=== PATIENT | female | born 1995 | race Two or more races ===

== ENCOUNTER 2017-12-15 05:34 | Inpatient (IN) | payer BC ==
[2017-12-15] MEDS ORDERED: Sodium Chloride 0.9% 10 ML Syringe FLUSH PRN (06:04)
[2017-12-15] MEDS ORDERED: ceFAZolin 2 GM in Premix Bag 1 BAG IV ONE (06:04)
[2017-12-15] MEDS ORDERED: Sodium Chloride 0.9% 2.5 ML Syringe FLUSH PRN (06:04)
[2017-12-15] MEDS ORDERED: Oxytocin/0.9 % Sodium Chloride 30 UNIT/500 ML BAG IV SCH (06:15)
[2017-12-15] MEDS ORDERED: Citric Acid/Sodium Citrate Solution 30 ML Cup PO SCH (06:15)
--- NOTE | 2017-12-15 06:41 | PCM.PREANE ---
Preanesthetic Assessment - Anesthesia/Transfusion/Family Hx Anesthesia History: Prior Anesthesia Without Reaction Family History of Anesthesia Reaction: No Transfusion History: No Prior Transfusion(s) Intubation History: Unknown - Review of Systems General: No Symptoms Pulmonary: No Symptoms Cardiovascular: No Symptoms Gastrointestinal: No Symptoms Neurological: No Symptoms Other: Reports: None - Physical Assessment Height: 1.57 m Weight: 89.811 kg ASA Class: 2 Mental Status: Alert & Oriented x3 Airway Class: Mallampati = 2 Dentition: Reports: Normal Dentition Thyro-Mental Finger Breadths: 3 Mouth Opening Finger Breadths: 2 ROM/Head Extension: Full Lungs: Clear to Auscultation, Normal Respiratory Effort Cardiovascular: Regular Rate, Regular Rhythm - Lab Values: Laboratory Last Values WBC 12.43 K/uL (4.0-11.0) H 12/14/17 19:34 RBC 4.44 M/uL (4.30-5.90) 12/14/17 19:34 Hgb 9.6 g/dL (12.0-16.0) L 12/14/17 19:34 Hct 31.4 % (36.0-46.0) L 12/14/17 19:34 MCV 70.7 fL (80.0-98.0) L 12/14/17 19:34 MCH 21.6 pg (27.0-32.0) L 12/14/17 19:34 MCHC 30.6 g/dL (31.0-37.0) L 12/14/17 19:34 RDW Std Deviation 40.2 fl (28.0-62.0) 12/14/17 19:34 RDW Coeff of Sharron 16 % (11.0-15.0) H 12/14/17 19:34 Plt Count 221 K/uL (150-400) 12/14/17 19:34 Nucleated RBC % 0.0 /100WBC 12/14/17 19:34 Nucleated RBCs # 0 K/uL 12/14/17 19:34 Blood Type A POSITIVE 12/14/17 19:34 Antibody Screen POSITIVE 12/14/17 19:34 Antibody Identification Anti-E 12/14/17 19:34 Antigen Typing E Antigen - NEGATIVE 12/14/17 19:34 Crossmatch See Detail 12/14/17 19:34 - Allergies Allergies/Adverse Reactions: Allergies Allergy/AdvReac Type Severity Reaction Status Date / Time No Known Allergies Allergy Verified 12/12/17 07:58 - Blood Blood Available: No - Anesthesia Plan Pre-Op Medication Ordered: None - Acknowledgements Anesthesia Type Planned: Spinal (GETA back up plan) Pt an Appropriate Candidate for the Planned Anesthesia: Yes Alternatives and Risks of Anesthesia Discussed w Pt/Guardian: Yes Pt/Guardian Understands and Agrees with Anesthesia Plan: Yes PreAnesthesia Questionnaire HEENT History: Reports: None Genitourinary History: Reports: None [employer]ENTICE History: Reports: Endocrine/Metabolic History: Reports: Obesity/BMI 30+ - Past Surgical History Head Surgeries/Procedures: Reports: None HEENT Surgical History: Reports: Other (See Below) Other HEENT Surgeries/Procedures: wisdom teeth extracted Female Surgical History: Reports: Section - SUBSTANCE USE Smoking Status *Q: Former Smoker Second Hand Smoke Exposure: Yes Recreational Drug Use History: No - HOME MEDS Home Medications: Home Meds PNV95/Ferrous Fumarate/FA [ Vitamin Tablet] 1 tab PO DAILY 12/12/17 [ History] - CURRENT (IN HOUSE) MEDS Current Meds: Current Medications Citric Acid/Sodium Citrate (Bicitra Solution) 30 ml PO .ONCE RACHEL Lactated Ringer's (Ringers, Lactated) 1,000 mls @ 500 mls/hr IV .BOLUS RACHEL Oxytocin/Sodium Chloride (Oxytocin 30 Unit/500 Ml-Ns) 30 unit in 500 mls @ 250 mls/hr IV TITRATE RACHEL Sodium Chloride (Saline Flush) 10 ml FLUSH ASDIRECTED PRN PRN Reason: Keep Vein Open Sodium Chloride (Saline Flush) 2.5 ml FLUSH ASDIRECTED PRN PRN Reason: Keep Vein Open Discontinued Medications Cefazolin Sodium/Dextrose 2 gm (/ Premix) 50 mls @ 100 mls/hr IV ONETIME ONE Stop: 12/15/17 06:33
[2017-12-15] MEDS: Lactated Ringers 1,000 ML IV SCH ×2 (06:45→07:30)
[2017-12-15] MEDS ORDERED: ceFAZolin/Dextrose,Iso-Osmotic 2 GM/50 ML Duplex Bag IV ONE (06:46)
[2017-12-15] MEDS ORDERED: Oxytocin 10 Units/1 ML SDV ONE ×2 (06:47→06:48)
[2017-12-15] MEDS ORDERED: Morphine PF 1 MG/ML Amp ONE (06:49)
[2017-12-15] MEDS ORDERED: ePHEDrine 50 MG/ML SDV ONE (08:11)
[2017-12-15] MEDS ORDERED: Octyl 2-Cyanoacrylate 1 Tube ONE (08:25)
[2017-12-15] MEDS ORDERED: Phenylephrine/Normal Saline 100 MCG/ML 10 ML Syringe ONE (08:51)
--- NOTE | 2017-12-15 08:53 | PCM.OPNOTE ---
- General Post-Op/Procedure Note Date of Surgery/Procedure: 12/15/17 Operative Procedure(s): repeat low transverse Findings: Liveborn male 9 weight 4280 grams, normal appearing uterus, tubes and ovaries. Pre Op Diagnosis: 39 weeks, prior , declines VTOL Post-Op Diagnosis: Same Anesthesia Technique: Spinal Primary Surgeon: Marilee Stock Anesthesia Provider: Danial Ken Radic Pathology: none Fluid Replacement, Intraop: 2,000 Output, Urine Amount: 250 EBL in mLs: 500 Complications: None Known. Condition: Good
[2017-12-15] MEDS ORDERED: Ondansetron 4 MG/2 ML SDV IV PRN (08:56)
[2017-12-15] MEDS ORDERED: diphenhydrAMINE 50 MG/ML SDV IVPUSH PRN (08:56)
[2017-12-15] MEDS ORDERED: Lanolin 100% Cream 7 GM Tube TOP PRN (08:56)
[2017-12-15] MEDS ORDERED: Acetaminophen/oxyCODONE 325-5 MG Tab PO PRN ×2 (08:56)
[2017-12-15] MEDS ORDERED: Bisacodyl 10 MG Supp RECTAL PRN (08:56)
[2017-12-15] MEDS ORDERED: Lactated Ringers 1,000 ML IV SCH (09:00)
[2017-12-15] MEDS ORDERED: Ketorolac 30 MG/ML SDV ONE (09:15)
[2017-12-15] MEDS: Ketorolac 30 MG/ML SDV IVPUSH SCH ×3 (09:17→21:21)
[2017-12-15] MEDS ORDERED: Naloxone 0.4 MG/ML Syringe IVPUSH PRN (09:26)
[2017-12-15] MEDS ORDERED: Nalbuphine 10 MG/ML 10 ML MDV IVPUSH PRN (09:26)
[2017-12-15] MEDS ORDERED: Acetaminophen/oxyCODONE 325-10 MG Tab PO PRN (09:31)
[2017-12-15] MEDS ORDERED: fentaNYL 100 MCG/2 ML SDV IVPUSH PRN (09:35)
--- NOTE | 2017-12-15 09:51 | PCM.POSTAN ---
POST ANESTHESIA ASSESSMENT - MENTAL STATUS Mental Status: Alert, Oriented - RESPIRATORY Respiratory Status: Respiratory Rate WNL, Airway Patent, O2 Saturation Stable - CARDIOVASCULAR CV Status: Pulse Rate WNL, Blood Pressure Stable - GASTROINTESTINAL GI Status: No Symptoms - POST OP HYDRATION Hydration Status: Adequate & Stable
[2017-12-15] MEDS: Docusate Sodium 100 MG Cap PO SCH ×2 (10:02→21:20)
--- NOTE | 2017-12-15 12:49 | OR ---
SURGEON: Marilee Stock M.D. DATE OF PROCEDURE: 12/15/2017 PREOPERATIVE DIAGNOSES: 39-week intrauterine , prior delivery, declines trial of labor. POSTOPERATIVE DIAGNOSES: 39-week intrauterine , prior delivery, declines trial of labor. PROCEDURE: Repeat low-transverse section. ANESTHESIA: Spinal. ESTIMATED BLOOD LOSS: 500 mL. FLUIDS: 2600 mL of crystalloid. URINE OUTPUT: 250 mL. FINDINGS: Live-born male, scores 9 and 9, weighing 4280 g. Normal-appearing uterus, tubes, ovaries, and placenta. COMPLICATIONS: None known. DISPOSITION: Stable to recovery. BRIEF HISTORY: This is a 22-year-old female, she is G2, P1-0-0-1. She presents at 39 weeks' gestation for a repeat delivery with risks discussed including bleeding, infection, injury to bowel, bladder, blood vessels, ureters or other organs, risk of thromboembolic event, and risk of anesthesia. Understanding all these risks, she does desire to proceed. DESCRIPTION OF PROCEDURE: With the patient in the left tilt position, under adequate spinal analgesia, the abdomen was prepped with chlorhexidine and draped in usual fashion for abdominal surgery. SCDs were in place. Gonzalez catheter was in place and an appropriate time-out was held. She had received 2 g of Ancef IV. After documentation of adequate analgesia, the prior cicatrix was excised and the incision was carried through the subcutaneous tissue to the fascia, which was scored transversely in the midline. The fascial incision was extended laterally using curved Phan scissors. The fascia was elevated from the underlying rectus muscle and using sharp and blunt dissection. The rectus muscles were bluntly in the midline. A finger was used to enter the peritoneal cavity. There was adhesion of the omentum above the area of incision, but none below; therefore, the incision was extended using sharp and blunt dissection. The Olu O retractor was placed. The visceral peritoneum over the lower uterine segment was incised to develop an adequate bladder flap. A transverse curvilinear incision was made over the lower uterine segment using the scalpel. A finger was used to enter the amniotic cavity. Clear fluid was noted. The incision was extended by blunt dissection. The head was delivered via the uterine incision with fundal pressure with subsequent delivery of the 's shoulders and body without any difficulty. The cord was clamped x2 and cut, and the was handed to the nurse in attendance at delivery. The infant is a liveborn male, scores 9 and 9, weighing 4280 g. Cord blood was collected for cord ABGs as well as routine cord blood sampling. The placenta was removed by manual extraction. The uterus was cleaned with dry laparotomy tape. The cervix was opened with a ring forceps. The uterine incision was closed with a running lock suture of 0 Polysorb followed by an imbricating layer of 0 Polysorb. Pitocin had been initiated after delivery of the . There was excellent contraction of the uterus, which was very firm. After the imbricating layer, the uterine incision was inspected and was hemostatic. The tubes and ovaries were inspected and appeared normal. Therefore, the Olu O retractor was removed. A final inspection revealed hemostasis of the uterine incision and therefore the rectus muscle and peritoneum were loosely approximated in the midline using a running mattress suture of 0 Polysorb. The posterior aspect of the fascia was inspected and areas of bleeding that were noted were cauterized. The fascial incision was closed with a running suture of 0 Polysorb. Subcutaneous tissue was irrigated. Any areas of bleeding that were noted were cauterized. The skin was closed with a running subcuticular suture of 3-0 Polysorb followed by Dermabond. Final sponge, needle, and instrument counts were reported as correct. There were no known complications. A pressure dressing was applied due to low blood pressure at the end of the case, although there was no bleeding. The patient was transferred to recovery in good condition. CHIARA / ZI /[id number]
[2017-12-16] MEDS: Ketorolac 30 MG/ML SDV IVPUSH SCH ×2 (03:16→09:33)
--- NOTE | 2017-12-16 07:49 | PCM.PNPP ---
- General Info Date of Service: 12/16/17 Functional Status: Reports: Pain Controlled, Tolerating Diet, Ambulating, Urinating - Review of Systems General: Denies: Fever, Weakness, Fatigue Pulmonary: Denies: Shortness of Breath, Pleuritic Chest Pain, Cough Cardiovascular: Denies: Chest Pain, Palpitations, Dyspnea on Exertion Gastrointestinal: Denies: Abdominal Pain Genitourinary: Denies: Dysuria - General Info Date of Service: 12/16/17 - Patient Data Vital Signs - Most Recent: Last Vital Signs Temp 36.4 C 12/16/17 07:00 Pulse 79 12/16/17 07:00 Resp 16 12/16/17 07:00 BP 109/68 12/16/17 07:00 Pulse Ox 95 12/16/17 07:00 Weight - Most Recent: 89.448 kg I&O - Last 24 Hours: Intake & Output 12/15/17 12/16/17 12/16/17 22:59 06:59 14:59 Intake Total 200 Output Total 700 900 Balance -500 -900 Lab Results - Last 24 Hours: Laboratory Results - last 24 hr 12/15/17 12/16/17 Range/Units 08:16 06:20 Hgb 8.1 L (12.0-16.0) g/dL Hct 26.8 L (36.0-46.0) % Cord ABG pH 7.356 (7.18-7.38) Cord ABG Base Excess -1 H (-10--2) Cord VBG pH 7.388 (7.25-7.45) Cord VBG Base Excess -3 (-10--2) Med Orders - Current: Current Medications Bisacodyl (Dulcolax) 10 mg RECTAL .ONCE PRN PRN Reason: Constipation Diphenhydramine HCl (Benadryl) 25 mg IVPUSH Q6H PRN PRN Reason: Itching or Nausea Docusate Sodium (Colace) 100 mg PO BID RACHEL Last Admin: 12/15/17 21:20 Dose: 100 mg Emollient Ointment (Lansinoh Hpa) 0 gm TOP ASDIRECTED PRN PRN Reason: Sore Nipples Fentanyl (Sublimaze) 50 - 100 mcg IVPUSH Q6H PRN PRN Reason: Pain (severe 7-10) Lactated Ringer's (Ringers, Lactated) 1,000 mls @ 125 mls/hr IV ASDIRECTED [facility] Ibuprofen (Motrin) 800 mg PO Q8H PRN PRN Reason: mild pain or fever Ketorolac Tromethamine (Toradol) 30 mg IVPUSH Q6H RACHEL Stop: 12/16/17 09:01 Last Admin: 12/16/17 03:16 Dose: 30 mg Nalbuphine HCl (Nubain) 5 mg IVPUSH Q3H PRN PRN Reason: Pruritis Stop: 12/16/17 09:29 Naloxone HCl (Narcan) 0.1 mg IVPUSH ONETIME PRN PRN Reason: Respiratory Depression Stop: 12/16/17 09:29 Ondansetron HCl (Zofran) 4 mg IV Q4H PRN PRN Reason: Nausea/Vomiting Last Admin: 12/15/17 10:11 Dose: 4 mg Oxycodone/Acetaminophen (Percocet 325-5 Mg) 1 tab PO Q4H PRN PRN Reason: Pain (moderate 4-6) Oxycodone/Acetaminophen (Percocet 325-5 Mg) 2 tab PO Q4H PRN PRN Reason: Pain (moderate 4-6) Oxycodone/Acetaminophen (Percocet 325-10 Mg) 1 tab PO Q4H PRN PRN Reason: Pain (moderate 4-6) Stop: 12/16/17 09:31 Discontinued Medications Cefazolin Sodium/Dextrose (Ancef) Confirm Administered Dose 2 gm IV .STK-MED ONE Stop: 12/15/17 06:47 Citric Acid/Sodium Citrate (Bicitra Solution) 30 ml PO .ONCE RACHEL Last Admin: 12/15/17 07:41 Dose: 30 ml Ephedrine Sulfate (Ephedrine Sulfate) Confirm Administered Dose 50 mg .ROUTE .STK-MED ONE Stop: 12/15/17 08:12 Cefazolin Sodium/Dextrose 2 gm (/ Premix) 50 mls @ 100 mls/hr IV ONETIME ONE Stop: 12/15/17 06:33 Last Admin: 12/15/17 08:55 Dose: Not Given Lactated Ringer's (Ringers, Lactated) 1,000 mls @ 500 mls/hr IV .BOLUS RACHEL Last Admin: 12/15/17 07:30 Dose: 1,000 mls/hr Oxytocin/Sodium Chloride (Oxytocin 30 Unit/500 Ml-Ns) 30 unit in 500 mls @ 250 mls/hr IV TITRATE RACHEL Ketorolac Tromethamine (Toradol) Confirm Administered Dose 30 mg .ROUTE .STK- MED ONE Stop: 12/15/17 09:16 Last Admin: 12/15/17 10:02 Dose: Not Given Morphine Sulfate (Duramorph Pf) Confirm Administered Dose 1 mg .ROUTE .STK-MED ONE Stop: 12/15/17 06:50 Octyl Cyanoacrylate (Dermabond Advance) Confirm Administered Dose 1 applic .ROUTE .STK-MED ONE Stop: 12/15/17 08:26 Oxytocin (Pitocin) Confirm Administered Dose 10 unit .ROUTE .STK-MED ONE Stop: 12/15/17 06:48 Oxytocin (Pitocin) Confirm Administered Dose 10 unit .ROUTE .STK-MED ONE Stop: 12/15/17 06:49 Phenylephrine HCl (Phenylephrine In Ns 100 Mcg/Ml) Confirm Administered Dose 1 mg .ROUTE .STK-MED ONE Stop: 12/15/17 08:52 Sodium Chloride (Saline Flush) 10 ml FLUSH ASDIRECTED PRN PRN Reason: Keep Vein Open Sodium Chloride (Saline Flush) 2.5 ml FLUSH ASDIRECTED PRN PRN Reason: Keep Vein Open - Infant Interaction Infant Disposition, : [place] in Room with Family Interaction: Holding Infant Feeding: Bottle Fed Support Person: Significant Other - Recovery Exam Fundal Tone: Firm Fundal Level: 1 Fingerbreadths Above Umbilicus Fundal Placement: Midline Lochia Amount: Scant Lochia Color: Rubra/Red Perineum Description: Intact, Minimal Bruising/Swelling Episiotomy/Laceration: Approximated Bladder Status: Indwelling Catheter in Place Urinary Elimination: Indwelling Catheter - Exam General: Alert, Oriented Neck: Supple Lungs: Clear to Auscultation, Normal Respiratory Effort Cardiovascular: Regular Rate, Regular Rhythm GI/Abdominal Exam: Normal Bowel Sounds, Soft, Non-Tender, No Distention Extremities: Normal Inspection, Pedal Edema (trace) Skin: Warm, Dry, Intact - Problem List & Annotations (1) delivery delivered SNOMED Code(s): 790682464 Code(s): O82 - ENCOUNTER FOR DELIVERY WITHOUT INDICATION Status: Acute Current Visit: No - Problem List Review Problem List Initiated/Reviewed/Updated: Yes - Assessment Assessment:: POD#1 s/p RLTCS with minimal pain and lochia. Bottle feeding. Encouarged patient to shower and ambulate halls. - Plan Plan:: Continue routine post-op cares. Anticipate discharge home tomorrow.
--- NOTE | 2017-12-16 08:55 | PCM48HPAN ---
Post Anesthesia Note - EVALUATION WITHIN 48HRS OF ANESTHETIC Vital Signs in Normal Range: Yes Patient Participated in Evaluation: Yes Respiratory Function Stable: Yes Airway Patent: Yes Cardiovascular Function Stable: Yes Hydration Status Stable: Yes Pain Control Satisfactory: Yes Nausea and Vomiting Control Satisfactory: Yes Mental Status Recovered: Yes Resp Rate: 16
[2017-12-16] MEDS: Docusate Sodium 100 MG Cap PO SCH ×2 (09:34→21:36)
[2017-12-16] MEDS: Ibuprofen 800 MG Tab PO PRN (21:36)
[2017-12-17] MEDS: Ibuprofen 800 MG Tab PO PRN (04:28)
--- NOTE | 2017-12-17 06:53 | PCM.PNPP ---
- General Info Date of Service: 12/17/17 Functional Status: Reports: Pain Controlled, Tolerating Diet, Ambulating, Urinating - Review of Systems General: Reports: No Symptoms HEENT: Reports: No Symptoms Pulmonary: Reports: No Symptoms Cardiovascular: Reports: No Symptoms Gastrointestinal: Reports: No Symptoms Genitourinary: Reports: No Symptoms Musculoskeletal: Reports: No Symptoms Skin: Reports: No Symptoms Neurological: Reports: No Symptoms Psychiatric: Reports: No Symptoms - Patient Data Vital Signs - Most Recent: Last Vital Signs Temp 36.4 C 12/17/17 03:57 Pulse 85 12/17/17 03:57 Resp 20 12/17/17 03:57 BP 129/78 12/17/17 03:57 Pulse Ox 100 12/17/17 03:57 Weight - Most Recent: 89.448 kg Med Orders - Current: Current Medications Bisacodyl (Dulcolax) 10 mg RECTAL .ONCE PRN PRN Reason: Constipation Diphenhydramine HCl (Benadryl) 25 mg IVPUSH Q6H PRN PRN Reason: Itching or Nausea Docusate Sodium (Colace) 100 mg PO BID [facility] Last Admin: 12/16/17 21:36 Dose: 100 mg Emollient Ointment (Lansinoh Hpa) 0 gm TOP ASDIRECTED PRN PRN Reason: Sore Nipples Fentanyl (Sublimaze) 50 - 100 mcg IVPUSH Q6H PRN PRN Reason: Pain (severe 7-10) Lactated Ringer's (Ringers, Lactated) 1,000 mls @ 125 mls/hr IV ASDIRECTED [facility] Ibuprofen (Motrin) 800 mg PO Q8H PRN PRN Reason: mild pain or fever Last Admin: 12/17/17 04:28 Dose: 800 mg Ondansetron HCl (Zofran) 4 mg IV Q4H PRN PRN Reason: Nausea/Vomiting Last Admin: 12/15/17 10:11 Dose: 4 mg Oxycodone/Acetaminophen (Percocet 325-5 Mg) 1 tab PO Q4H PRN PRN Reason: Pain (moderate 4-6) Oxycodone/Acetaminophen (Percocet 325-5 Mg) 2 tab PO Q4H PRN PRN Reason: Pain (moderate 4-6) Discontinued Medications Cefazolin Sodium/Dextrose (Ancef) Confirm Administered Dose 2 gm IV .STK-MED ONE Stop: 12/15/17 06:47 Citric Acid/Sodium Citrate (Bicitra Solution) 30 ml PO .ONCE RACHEL Last Admin: 12/15/17 07:41 Dose: 30 ml Ephedrine Sulfate (Ephedrine Sulfate) Confirm Administered Dose 50 mg .ROUTE .STK-MED ONE Stop: 12/15/17 08:12 Cefazolin Sodium/Dextrose 2 gm (/ Premix) 50 mls @ 100 mls/hr IV ONETIME ONE Stop: 12/15/17 06:33 Last Admin: 12/15/17 08:55 Dose: Not Given Lactated Ringer's (Ringers, Lactated) 1,000 mls @ 500 mls/hr IV .BOLUS RACHEL Last Admin: 12/15/17 07:30 Dose: 1,000 mls/hr Oxytocin/Sodium Chloride (Oxytocin 30 Unit/500 Ml-Ns) 30 unit in 500 mls @ 250 mls/hr IV TITRATE RACHEL Ketorolac Tromethamine (Toradol) 30 mg IVPUSH Q6H RACHEL Stop: 12/16/17 09:01 Last Admin: 12/16/17 09:33 Dose: 30 mg Ketorolac Tromethamine (Toradol) Confirm Administered Dose 30 mg .ROUTE .STK- MED ONE Stop: 12/15/17 09:16 Last Admin: 12/15/17 10:02 Dose: Not Given Morphine Sulfate (Duramorph Pf) Confirm Administered Dose 1 mg .ROUTE .STK-MED ONE Stop: 12/15/17 06:50 Nalbuphine HCl (Nubain) 5 mg IVPUSH Q3H PRN PRN Reason: Pruritis Stop: 12/16/17 09:29 Naloxone HCl (Narcan) 0.1 mg IVPUSH ONETIME PRN PRN Reason: Respiratory Depression Stop: 12/16/17 09:29 Octyl Cyanoacrylate (Dermabond Advance) Confirm Administered Dose 1 applic .ROUTE .STK-MED ONE Stop: 12/15/17 08:26 Oxycodone/Acetaminophen (Percocet 325-10 Mg) 1 tab PO Q4H PRN PRN Reason: Pain (moderate 4-6) Stop: 12/16/17 09:31 Oxytocin (Pitocin) Confirm Administered Dose 10 unit .ROUTE .STK-MED ONE Stop: 12/15/17 06:48 Oxytocin (Pitocin) Confirm Administered Dose 10 unit .ROUTE .STK-MED ONE Stop: 12/15/17 06:49 Phenylephrine HCl (Phenylephrine In Ns 100 Mcg/Ml) Confirm Administered Dose 1 mg .ROUTE .STK-MED ONE Stop: 12/15/17 08:52 Sodium Chloride (Saline Flush) 10 ml FLUSH ASDIRECTED PRN PRN Reason: Keep Vein Open Sodium Chloride (Saline Flush) 2.5 ml FLUSH ASDIRECTED PRN PRN Reason: Keep Vein Open - Infant Interaction Disposition, : [place] in Room with Family Interaction: Holding Infant Feeding: Bottle Fed Infant Support Person: Significant Other - Recovery Exam Fundal Tone: Firm Fundal Level: 1 Fingerbreadths Below Umbilicus Fundal Placement: Midline Lochia Amount: Scant Lochia Color: Rubra/Red Perineum Description: Intact, Minimal Bruising/Swelling Episiotomy/Laceration: Approximated Bladder Status: Voiding Urinary Elimination: Indwelling Catheter - Exam General: Alert, Oriented HEENT: Pupils Equal Neck: Supple Lungs: Clear to Auscultation, Normal Respiratory Effort Cardiovascular: Regular Rate, Regular Rhythm GI/Abdominal Exam: Normal Bowel Sounds, Soft, Non-Tender, No Organomegaly, No Distention, No Mass Extremities: Normal Inspection, Non-Tender, No Pedal Edema Skin: Warm, Dry, Intact Wound/Incisions: Healing Well Neurological: No New Focal Deficit Psy/Mental Status: Alert, Normal Affect, Normal Mood - Problem List & Annotations (1) delivery delivered SNOMED Code(s): 201075430 Code(s): O82 - ENCOUNTER FOR DELIVERY WITHOUT INDICATION Status: Acute Current Visit: No - Problem List Review Problem List Initiated/Reviewed/Updated: Yes - Assessment Assessment:: POD#2 s/p RLTCS with minimal pain and lochia. Bottle feeding. Tolerating diet, has passed flatus, pain controlled with ibuprofen only, declines narcotic rx. Would like to go home today. - Plan Plan:: Dismiss to home, postop instructions reviewed.
[2017-12-17 08:14] VITALS: BP 123/82
[2017-12-17] MEDS: Docusate Sodium 100 MG Cap PO SCH (09:07)
== END 2017-12-17 11:50 | disposition home or self-care (01) | DRG 540 ==
LOC: MW.OB 05:34
PROVIDERS: ADMIT Obstetrics & Gynecology; ATTEND Obstetrics & Gynecology
PROC: 10D00Z1 Extraction of Products of Conception, Low, Open Approach (ICD-10-PCS; principal; 2017-12-15)
DX: O34.211 Maternal care for low transverse scar from previous cesarean delivery (principal); Z3A.39 39 weeks gestation of pregnancy; Z37.0 Single live birth
CPT/HCPCS: 01961; 36415; 59025; 82803; 85014; 85018; 85027; 86850; 86870; 86900; 86901; 86902; 86920; 86921; 86922; A9270-GY; J0690; J1885; J2274; J2405; J2590; J7120